=== PATIENT | male | born 1965 | race Hispanic/Latino ===

== ENCOUNTER 2021-09-10 07:48 | Emergency (ER) | payer BC ==
[~2021-09-10] VITALS: Ht 172.7 cm; Wt 84.8 kg
[2021-09-10 08:15] LABS: BASOPHILS % (AUTO) 0.4 % (0.0-5.0); EOSINOPHILS % (AUTO) 2.6 % (0.0-8.0); HEMATOCRIT 44.6 % (42-54); LYMPHOCYTES % (AUTO) 26.9 % (21.0-51.0); MEAN CORPUSCULAR HEMOGLOBIN 30.9 pg (27.0-33.0); MEAN CORPUSCULAR HGB CONC 34.8 g/dL (32.0-36.0); MONOCYTES % (AUTO) 10.2 % (3.0-13.0); NEUTROPHILS % (AUTO) 59.7 % (40.0-77.0); PLATELET COUNT (AUTO) 115 K/uL (130-400); RED BLOOD CELL COUNT(AUTO) 5.01 MIL/uL (4.50-6.20); RED CELL DISTRIBUTION WIDTH 11.8 % (11.0-15.5); WHITE BLOOD COUNT (AUTO) 4.7 K/uL (4.8-10.8)
[2021-09-10 08:32] LABS: CREATININE 1.2 mg/dL (0.5-1.5); POTASSIUM 3.8 mmol/L (3.5-5.1)
[2021-09-10 08:36] LABS: ALBUMIN 3.9 g/dL (3.5-5.0); BILIRUBIN,TOTAL 0.8 mg/dL (0.2-1.0); MAGNESIUM 1.7 mg/dL (1.80-2.40); TOTAL PROTEIN, SERUM 7.7 g/dL (6.0-8.3)
[2021-09-10 08:39] LABS: B-TYPE NATRIURETIC PEPTIDE 15 pg/mL (0-100)
[2021-09-10 08:59] LABS: APPEARANCE,URINE CLEAR (CLEAR); BILIRUBIN,URINE NEGATIVE (NEGATIVE); COLOR,URINE YELLOW (YELLOW); GLUCOSE, URINE (UA) >=1000 mg/dL (NEGATIVE); KETONES,URINE 15 mg/dL (NEGATIVE); LEUKOCYTE ESTERASE ,URINE NEGATIVE (NEGATIVE); NITRATE,URINE NEGATIVE (NEGATIVE); OCCULT BLOOD,URINE NEGATIVE (NEGATIVE); PROTEIN,URINE TRACE mg/dL (NEGATIVE); UROBILINOGEN,URINE 0.2 mg/dL (0.2-1.0)
[2021-09-10 09:17] LABS: BACTERIA,URINE None Seen /HPF (None Seen); RBC,URINE None Seen /HPF (0-1); SQUAMOUS EPITHELIAL CELL,UR None Seen /HPF (0-2)
[2021-09-10 09:30] VITALS: BP 135/87
[2021-09-10] MEDS ORDERED: MAGNESIUM OXIDE 400 MG TABLET PO SCH (10:30)
== END 2021-09-10 10:15 | disposition home or self-care (01) ==
LOC: EDH 07:48
DX: R07.89 Other chest pain (principal); E83.42 Hypomagnesemia; E11.9 Type 2 diabetes mellitus without complications; Z91.030 Bee allergy status
CPT/HCPCS: 36415; 71045; 80053; 81001; 83735; 83880; 84484; 85025; 93005

== ENCOUNTER 2023-04-02 16:19 | Emergency (ER) | payer BC ==
[~2023-04-02] VITALS: Ht 172.7 cm; Wt 79.8 kg
[2023-04-02] MEDS ORDERED: IBUP-2077 PO (19:55)
[2023-04-02] MEDS ORDERED: HYDROCODONE/ACETAMINOPHEN 5/325 MG TAB PO ONE (20:30)
[2023-04-02 20:46] VITALS: BP 130/91; PULSE 88; RESP 20; O2SAT 99
== END 2023-04-02 21:06 | disposition home or self-care (01) ==
LOC: EDH 16:19
DX: S93.401A Sprain of unspecified ligament of right ankle, initial encounter (principal); S90.31XA Contusion of right foot, initial encounter; E11.9 Type 2 diabetes mellitus without complications; Z91.030 Bee allergy status; W10.9XXA Fall (on) (from) unspecified stairs and steps, initial encounter; Y93.89 Activity, other specified; Y92.89 Other specified places as the place of occurrence of the external cause; Y99.8 Other external cause status
CPT/HCPCS: 29515; 73600; 73630